=== PATIENT | male | born 1960 | race Two or more races ===

== ENCOUNTER 2017-07-13 09:02 | Day surgery (SDC) | payer OTHER ==
[~2017-07-13 09:02] MED LIST: ACETAMINOPHEN 1000 MG/100 ML IVPB
[2017-07-13] MEDS ORDERED: OXYCODONE/ACETAMINOPHEN (5/325) TAB PO ×2 (09:30)
[2017-07-13] MEDS ORDERED: HYDROmorphONE (0.2 MG/ML) 10ML SYG IV ×3 (09:30)
[2017-07-13] MEDS ORDERED: ONDANSETRON 4 MG INJ IV ×2 (09:30→11:30)
[2017-07-13] MEDS ORDERED: CIPROFLOXACIN 400MG/D5W 200 ML (09:31)
[2017-07-13] MEDS ORDERED: FENTAnyl 50 MCG/ML VIAL (09:31)
[2017-07-13] MEDS ORDERED: PROPOFOL 20 ML (09:31)
[2017-07-13] MEDS ORDERED: MIDAZOLAM 1 MG/ML 2 ML INJ (09:31)
[2017-07-13] MEDS ORDERED: METOCLOPRAMIDE 10 MG INJ (09:32)
[2017-07-13] MEDS ORDERED: ONDANSETRON 4 MG INJ (09:32)
[2017-07-13] MEDS ORDERED: EPHEDrine SULFATE 50 MG/5 ML SYG (10:06)
[2017-07-13] MEDS ORDERED: HYDROCODONE/APAP (5/325) TAB PO (11:30)
[2017-07-13] MEDS: FUROSEMIDE 20 MG INJ IV (12:33)
== END 2017-07-13 14:15 | disposition home or self-care (01) ==
LOC: SDS 09:02
DX: N20.1 Calculus of ureter (principal)
CPT/HCPCS: 52356; 87086

== ENCOUNTER 2017-10-12 08:41 | Inpatient (IN) | payer OTHER ==
[2017-10-12] MEDS: CIPROFLOXACIN 400MG/D5W 200 ML IVPB (12:00)
[2017-10-12] MEDS ORDERED: PROPOFOL 20 ML ×2 (13:05→15:11)
[2017-10-12] MEDS ORDERED: ROCURONIUM 50 MG INJ ×2 (13:05→15:11)
[2017-10-12] MEDS ORDERED: NEOSTIGMINE 3 MG/3 ML SYRINGE ×2 (13:05→15:11)
[2017-10-12] MEDS ORDERED: LIDOCAINE 2% (SDV) 5 ML INJ (13:05)
[2017-10-12] MEDS ORDERED: SUCCINYLCHOLINE CHLORIDE 100 MG/5 ML SYG IV ×2 (13:05→15:11)
[2017-10-12] MEDS ORDERED: GLYCOPYRROLATE 0.4 MG INJ ×2 (13:05→15:11)
[2017-10-12] MEDS ORDERED: ONDANSETRON 4 MG INJ (14:37)
[2017-10-12] MEDS ORDERED: DEXAMETHASONE 4 MG/ML 1 ML INJ ×2 (14:37→14:44)
[2017-10-12] MEDS ORDERED: FUROSEMIDE 20 MG INJ (14:43)
[2017-10-12] MEDS ORDERED: MEPERIDINE 100 MG INJ (15:22)
[2017-10-12] MEDS ORDERED: HYDROCODONE/APAP (5/325) TAB PO (15:30)
[2017-10-12] MEDS ORDERED: ONDANSETRON 4 MG INJ IV ×2 (15:30→16:30)
[2017-10-12] MEDS ORDERED: ACETAMINOPHEN 650MG/20.3ML CUP PO (16:30)
[2017-10-12] MEDS: LORAZEPAM 2 MG INJ IV (16:33)
[2017-10-12] MEDS: DEXTROSE 5%-0.45% NACL 1,000 ML IV (16:34)
[2017-10-12] MEDS: PROPOFOL 100 ML IV ×2 (16:40→22:55)
[2017-10-12] MEDS ORDERED: ALBUTEROL HFA 8 GM INHALER INH (17:00)
[2017-10-12 17:21] LABS: ADD MAN DIFF? NO
[2017-10-12 17:23] LABS: WHITE BLOOD COUNT 13.2 10^3/ul (4.8-10.8)
[2017-10-12 17:23] LABS: BASOPHILS % 0.3 % (0.0-2.0); EOSINOPHILS # 0.1 10^3/ul (0.0-0.5); EOSINOPHILS % 0.8 % (0.0-7.0); HEMATOCRIT 50.9 % (42.0-52.0); HEMOGLOBIN 16.3 g/dl (14.0-18.0); LYMPHOCYTES # 0.7 10^3/ul (0.8-2.9); MEAN CORPUSCULAR HEMOGLOBIN 27.7 pg (29.0-33.0); MEAN CORPUSCULAR VOLUME 86.4 fl (82.0-101.0); MONOCYTE # 0.1 10^3/ul (0.3-0.9); MONOCYTES % 1.1 % (0.0-11.0); NEUTROPHIL # 12.2 10^3/ul (1.6-7.5); NEUTROPHILS % 92.5 % (39.0-77.0); PLATELET COUNT 243 10^3/UL (140-415); RED BLOOD COUNT 5.89 10^6/ul (4.70-6.10); RED CELL DISTRIBUTION WIDTH 13.8 % (11.5-14.5)
[2017-10-12] MEDS ORDERED: DEXTROSE 50% 50 ML SYRINGE IV ×2 (17:30)
[2017-10-12] MEDS ORDERED: GLUCOSE GEL 15 GRAM TUBE BUCCAL (17:30)
[2017-10-12] MEDS ORDERED: GLUCOSE GEL 15 GRAM TUBE PO ×2 (17:30)
[2017-10-12] MEDS ORDERED: GLUCAGON 1 MG INJ IM (17:30)
[2017-10-12 17:39] LABS: ANION GAP 13 (8-16); BLOOD UREA NITROGEN 11 mg/dl (7-20); CALCIUM 8.8 mg/dl (8.4-10.2); CARBON DIOXIDE 27 mmol/L (21-31); CHLORIDE 101 mmol/L (97-110); CREATININE 0.57 mg/dl (0.61-1.24); GLUCOSE 144 mg/dl (70-220); POTASSIUM 3.6 mmol/L (3.5-5.1); SODIUM 137 mmol/L (135-144)
[2017-10-12 17:39] LABS: HEMOGLOBIN A1C 6.3 % (0-5.9)
[2017-10-12] MEDS: FENTAnyl (DRIP) 1000 mcg/100mL 100 ML IV (17:47)
[2017-10-12] MEDS: FENTAnyl 50 MCG/ML VIAL IV (17:50)
[2017-10-12 20:27] LABS: AADO2 Arterial 381.5 mmHg (7.0-24.0); Allen Test ACCEPTAB; Arterial Base Excess 1.5 mmol/L (-3.0-3); Arterial Blood Gas Oxygen Sat 99.4 mmHG (95.0-98.0); Arterial COHb 0.3 % (0.0-3.0); Arterial Fraction of Oxyhgb 98.6 % (93.0-99.0); Arterial HCO3 28.1 mmol/L (22.0-26.0); Arterial MetHb 0.5 % (0.0-1.5); Arterial pCO2 50.8 mmhg (35-45); MODE VENT - AC; Site Right Radial
[2017-10-12] MEDS: INSULIN ASPART [NOVOLOG] 3 ML PEN SC (21:47)
[2017-10-13] MEDS: INSULIN ASPART [NOVOLOG] 3 ML PEN SC ×5 (00:56→17:00)
[2017-10-13] MEDS: DEXTROSE 5%-0.45% NACL 1,000 ML IV (02:43)
[2017-10-13 04:59] LABS: AADO2 Arterial 295.1 mmHg (7.0-24.0); Allen Test ACCEPTAB; Arterial Base Excess -0.2 mmol/L (-3.0-3); Arterial Blood Gas Oxygen Sat 97.9 mmHG (95.0-98.0); Arterial COHb 0.3 % (0.0-3.0); Arterial Fraction of Oxyhgb 97.2 % (93.0-99.0); Arterial HCO3 22.3 mmol/L (22.0-26.0); Arterial MetHb 0.4 % (0.0-1.5); Arterial Total Hemglobin 15.9 g/dl (12.0-18.0); MODE VENT - AC; Site Right Radial
[2017-10-13] MEDS: PANTOPRAZOLE 40 MG INJ IV (05:10)
[2017-10-13 05:25] LABS: ADD MAN DIFF? NO
[2017-10-13 05:27] LABS: WHITE BLOOD COUNT 9.3 10^3/ul (4.8-10.8)
[2017-10-13 05:27] LABS: ABNORMAL IP MESSAGE 1; BASOPHILS % 0.1 % (0.0-2.0); HEMATOCRIT 44.8 % (42.0-52.0); HEMOGLOBIN 14.8 g/dl (14.0-18.0); LYMPHOCYTES # 0.6 10^3/ul (0.8-2.9); LYMPHOCYTES % 6.2 % (15.0-51.0); MEAN CORPUSCULAR HEMOGLOBIN 27.9 pg (29.0-33.0); MEAN CORPUSCULAR VOLUME 84.4 fl (82.0-101.0); MEAN PLATELET VOLUME 10.6 fl (7.4-10.4); MONOCYTE # 0.4 10^3/ul (0.3-0.9); MONOCYTES % 3.9 % (0.0-11.0); NEUTROPHIL # 8.4 10^3/ul (1.6-7.5); NEUTROPHILS % 89.5 % (39.0-77.0); PLATELET COUNT 300 10^3/UL (140-415); POSITIVE DIFF @See below; RED BLOOD COUNT 5.31 10^6/ul (4.70-6.10); RED CELL DISTRIBUTION WIDTH 13.7 % (11.5-14.5)
[2017-10-13 06:23] LABS: ALBUMIN 3.6 g/dl (3.3-4.9); ANION GAP 12 (8-16); BLOOD UREA NITROGEN 10 mg/dl (7-20); CALCIUM 8.6 mg/dl (8.4-10.2); CARBON DIOXIDE 25 mmol/L (21-31); CHLORIDE 103 mmol/L (97-110); CREATININE 0.55 mg/dl (0.61-1.24); GLUCOSE 165 mg/dl (70-220); MAGNESIUM 1.8 mg/dl (1.7-2.5); PHOSPHORUS 3.2 mg/dl (2.5-4.9); POTASSIUM 3.6 mmol/L (3.5-5.1); SODIUM 136 mmol/L (135-144)
[2017-10-13 11:02] LABS: AADO2 Arterial 115.8 mmHg (7.0-24.0); Allen Test ACCEPTAB; Arterial Base Excess 1.2 mmol/L (-3.0-3); Arterial COHb 0.4 % (0.0-3.0); Arterial Fraction of Oxyhgb 94.2 % (93.0-99.0); Arterial HCO3 22.2 mmol/L (22.0-26.0); Arterial MetHb 0.4 % (0.0-1.5); Arterial Total Hemglobin 16.3 g/dl (12.0-18.0); Arterial pCO2 26.8 mmhg (35-45); Blood Gas PS 10; MODE VENT - CPAP; Site Right Radial
[2017-10-13] MEDS: CIPROFLOXACIN 500 MG TAB NGT (17:17)
[2017-10-13] MEDS: ATORVASTATIN 20 MG TAB PO (20:50)
[2017-10-13] MEDS: Insulin NOVOLOG SS MILD Algorithm (SS with meals and bedtime) SC (20:53)
[2017-10-13] MEDS ORDERED: INSULIN ASPART [NOVOLOG] 3 ML PEN SC (21:00)
[2017-10-14 05:12] LABS: ADD MAN DIFF? NO
[2017-10-14 05:22] LABS: BASOPHILS % 0.4 % (0.0-2.0); EOSINOPHILS # 0.1 10^3/ul (0.0-0.5); HEMATOCRIT 46.4 % (42.0-52.0); HEMOGLOBIN 14.7 g/dl (14.0-18.0); LYMPHOCYTES % 20.2 % (15.0-51.0); MEAN CORPUSCULAR HEMOGLOBIN 27.4 pg (29.0-33.0); MEAN CORPUSCULAR HGB CONC 31.7 g/dl (32.0-37.0); MEAN CORPUSCULAR VOLUME 86.4 fl (82.0-101.0); MEAN PLATELET VOLUME 10.4 fl (7.4-10.4); MONOCYTE # 0.8 10^3/ul (0.3-0.9); NEUTROPHILS % 70.2 % (39.0-77.0); PLATELET COUNT 292 10^3/UL (140-415); RED BLOOD COUNT 5.37 10^6/ul (4.70-6.10); RED CELL DISTRIBUTION WIDTH 14.3 % (11.5-14.5)
[2017-10-14 06:12] LABS: ALBUMIN 3.5 g/dl (3.3-4.9); ANION GAP 11 (8-16); BLOOD UREA NITROGEN 12 mg/dl (7-20); CALCIUM 8.7 mg/dl (8.4-10.2); CARBON DIOXIDE 26 mmol/L (21-31); CHLORIDE 106 mmol/L (97-110); CREATININE 0.67 mg/dl (0.61-1.24); GLUCOSE 102 mg/dl (70-220); PHOSPHORUS 4.8 mg/dl (2.5-4.9); POTASSIUM 3.7 mmol/L (3.5-5.1); SODIUM 139 mmol/L (135-144)
[2017-10-14] MEDS: CIPROFLOXACIN 500 MG TAB NGT ×2 (06:52→18:09)
[2017-10-14] MEDS: PANTOPRAZOLE 40 MG INJ IV (06:52)
[2017-10-14] MEDS: Insulin NOVOLOG SS MILD Algorithm (SS with meals and bedtime) SC ×4 (07:05→21:00)
[2017-10-14] MEDS: LOSARTAN 50 MG TAB PO (08:41)
[2017-10-14] MEDS: ALLOPURINOL 300 MG TAB PO (08:41)
[2017-10-14] MEDS: ATORVASTATIN 20 MG TAB PO (21:02)
[2017-10-15] MEDS: CIPROFLOXACIN 500 MG TAB NGT (05:36)
[2017-10-15] MEDS: PANTOPRAZOLE 40 MG INJ IV (05:36)
[2017-10-15 05:43] LABS: ADD MAN DIFF? NO
[2017-10-15 06:00] LABS: WHITE BLOOD COUNT 10.5 10^3/ul (4.8-10.8)
[2017-10-15 06:00] LABS: BASOPHIL # 0.1 10^3/ul (0.0-0.1); BASOPHILS % 0.5 % (0.0-2.0); EOSINOPHILS # 0.2 10^3/ul (0.0-0.5); EOSINOPHILS % 2.2 % (0.0-7.0); HEMATOCRIT 47.9 % (42.0-52.0); HEMOGLOBIN 15.4 g/dl (14.0-18.0); LYMPHOCYTES # 1.6 10^3/ul (0.8-2.9); LYMPHOCYTES % 15.3 % (15.0-51.0); MEAN CORPUSCULAR HEMOGLOBIN 27.8 pg (29.0-33.0); MEAN CORPUSCULAR HGB CONC 32.2 g/dl (32.0-37.0); MEAN CORPUSCULAR VOLUME 86.5 fl (82.0-101.0); MEAN PLATELET VOLUME 10.1 fl (7.4-10.4); MONOCYTE # 0.9 10^3/ul (0.3-0.9); MONOCYTES % 8.4 % (0.0-11.0); NEUTROPHIL # 7.7 10^3/ul (1.6-7.5); NEUTROPHILS % 73.3 % (39.0-77.0); PLATELET COUNT 301 10^3/UL (140-415); RED BLOOD COUNT 5.54 10^6/ul (4.70-6.10); RED CELL DISTRIBUTION WIDTH 13.7 % (11.5-14.5)
[2017-10-15 06:23] LABS: ALBUMIN 3.8 g/dl (3.3-4.9); ANION GAP 12 (8-16); BLOOD UREA NITROGEN 13 mg/dl (7-20); CALCIUM 9.1 mg/dl (8.4-10.2); CARBON DIOXIDE 28 mmol/L (21-31); CHLORIDE 103 mmol/L (97-110); CREATININE 0.58 mg/dl (0.61-1.24); GLUCOSE 107 mg/dl (70-220); MAGNESIUM 1.9 mg/dl (1.7-2.5); PHOSPHORUS 4.7 mg/dl (2.5-4.9); POTASSIUM 3.8 mmol/L (3.5-5.1); SODIUM 139 mmol/L (135-144)
[2017-10-15] MEDS: Insulin NOVOLOG SS MILD Algorithm (SS with meals and bedtime) SC (07:46)
[2017-10-15] MEDS: LOSARTAN 50 MG TAB PO (08:59)
[2017-10-15] MEDS: ALLOPURINOL 300 MG TAB PO (08:59)
== END 2017-10-15 11:45 | disposition home or self-care (01) | DRG 208 ==
LOC: SDS 08:41 → ICU 16:20 → MS2 10-14 10:15 → SDS 21:54 → ICU 16:13
PROVIDERS: Internal Medicine
PROC: 5A1935Z Respiratory Ventilation, Less than 24 Consecutive Hours (ICD-10-PCS; principal; 2017-10-12 11:00)
PROC: 4A133R1 Monitoring of Arterial Saturation, Peripheral, Percutaneous Approach (ICD-10-PCS; 2017-10-12 11:00)
PROC: 0TF4XZZ Fragmentation in Left Kidney Pelvis, External Approach (ICD-10-PCS; 2017-10-12 11:00)
PROC: 0TP98DZ Removal of Intraluminal Device from Ureter, Via Natural or Artificial Opening Endoscopic (ICD-10-PCS; 2017-10-12 11:00)
PROC: 0BH17EZ Insertion of Endotracheal Airway into Trachea, Via Natural or Artificial Opening (ICD-10-PCS; 2017-10-12 13:47)
PROC: 5A09357 Assistance with Respiratory Ventilation, Less than 24 Consecutive Hours, Continuous Positive Airway Pressure (ICD-10-PCS; 2017-10-12 13:47)
DX: J95.821 Acute postprocedural respiratory failure (principal); I42.9 Cardiomyopathy, unspecified; R73.03 Prediabetes; E66.01 Morbid (severe) obesity due to excess calories; Z68.38 Body mass index [BMI] 38.0-38.9, adult; I11.0 Hypertensive heart disease with heart failure; I50.9 Heart failure, unspecified; E78.5 Hyperlipidemia, unspecified; Z87.440 Personal history of urinary (tract) infections; M10.9 Gout, unspecified
CPT/HCPCS: 36600; 71045; 74430; 80048; 80069; 82803; 82962; 83036; 83735; 85025; 87081; 94002; 94003; 94660; 94770